=== PATIENT | female | born 1945 | race Caucasian/White ===

== ENCOUNTER 2017-03-18 12:50 | Emergency (ER) | payer MEDICARE, OTHER ==
[2017-03-18 13:15] VITALS: BP 148/65
[2017-03-18] MEDS ORDERED: CIPROFLOXACIN 250 MG TABLET PO STA (15:15)
--- NOTE | 2017-03-18 15:18 | ED Physician Documentation ---
History of Present Illness - Stated complaint Stated Complaint: COLD/COUGH/FEMALE - Chief complaint Chief Complaint: Resp - History obtained from History obtained from: Family - History of Present Illness Timing: Other (71-year-old woman brought in by brother and [id number] for her severe Alzheimer's and she has been grabbing her crotch similar to prior UTI a few months ago that was treated successfully with ciprofloxacin. She has not been febrile. She has been a little more agitated than normal and has a productive cough but the whole family has that that has been going on for about 2 weeks.) Review of Systems Unable to obtain: Confused PD PAST MEDICAL HISTORY - Past Medical History Past Medical History: Yes Neuro: Alzhiemer's - Past Surgical History Past Surgical History: No - Present Medications Home Medications: Ambulatory Orders Medication Instructions Recorded Confirmed Ciprofloxacin [Cipro] 250 mg PO Q12H #9 tablet 03/18/17 Donepezil [Aricept] 5 mg PO DAILY 03/18/17 03/18/17 traZODone [Desyrel] 50 mg PO HS 03/18/17 03/18/17 - Allergies Allergies/Adverse Reactions: Allergies Allergy/AdvReac Type Severity Reaction Status Date / Time No Known Drug Allergies Allergy Verified 03/18/17 13:14 - Social History Does the pt smoke?: No Smoking Status: Never smoker Does the pt drink ETOH?: No Does the pt have substance abuse?: No - Immunizations Immunizations are current?: Yes PD ED PE NORMAL - Vitals Vital signs reviewed: Yes - General General: Other (She is alert, minimally cooperative, slightly agitated and walking around, nonsensical speech.) - Cardiac Cardiac: RRR, No murmur - Respiratory Respiratory: No respiratory distress, Clear bilaterally - Abdomen Abdomen: Non tender - Neuro Eye Opening: Spontaneous Motor: Localizes to Pain Verbal: Confused GCS Score: 13 Results - Vitals Vitals: Vital Signs - 24 hr 03/18/17 13:10 Temperature 36.9 C Heart Rate 99 Respiratory 18 Rate Blood Pressure 148/65 H O2 Saturation 97 Oxygen O2 Source Room air PD MEDICAL DECISION MAKING - ED course ED course: We discussed how we would get a urine sample, the family was pessimistic that we would be able to and might need to be sedated for catheter. Given that this is consistent with prior episodes of UTI she is actively grabbing her crotch it seems reasonable to treat her presumptively with antibiotics. Departure - Departure Disposition: 01 Home, Self Care Clinical Impression: UTI (urinary tract infection) Qualifiers: Urinary tract infection type: acute cystitis Hematuria presence: without hematuria Qualified Code(s): N30.00 - Acute cystitis without hematuria Condition: Good Record reviewed to determine appropriate education?: Yes Instructions: ED UTI Cystitis Female Prescriptions: Ciprofloxacin [Cipro] 250 mg PO Q12H #9 tablet Comments: Return anytime if worse or if new symptoms develop or if she is not getting better. Your blood pressure was elevated today on check into the emergency department. This does not mean that you have hypertension, it is a common phenomenon to come to the emergency department and have elevated blood pressure. I recommend that you see your primary care physician within the week to have it rechecked when you are feeling better.
== END 2017-03-18 15:30 | disposition home or self-care (01) ==
LOC: ED 12:50
DX: N30.00 Acute cystitis without hematuria (principal); Z87.440 Personal history of urinary (tract) infections; R03.0 Elevated blood-pressure reading, without diagnosis of hypertension; G30.9 Alzheimer's disease, unspecified; F02.80 Dementia in other diseases classified elsewhere, unspecified severity, without behavioral disturbance, psychotic disturbance, mood disturbance, and anxiety
CPT/HCPCS: 99283; A9270

== ENCOUNTER 2017-12-17 17:43 | Outpatient (CLI) | payer MEDICARE | END 2017-12-17 17:44 | disposition EMS.NT | LOC: EMS 17:43 | PROVIDERS: ATTEND Surgery | DX: R41.82 Altered mental status, unspecified (principal) ==

== ENCOUNTER 2018-08-29 14:57 | Outpatient (CLI) | payer MEDICARE | END 2018-08-29 14:58 | disposition E | LOC: EMS 14:57 | PROVIDERS: ATTEND Surgery ==